=== PATIENT | female | born 1990 | race Caucasian/White ===

== ENCOUNTER 2017-05-30 15:23 | Outpatient (CLI) | payer OTHER ==
[~2017-05-30] VITALS: Ht 154.9 cm; Wt 67.1 kg
[~2017-05-30 15:23] MED LIST: PREN-39 PO
[2017-05-30 15:36] VITALS: BP 110/69; PULSE 109
[2017-05-30 15:37] VITALS: Ht 154.9 cm; Wt 67.1 kg
[2017-05-30] MEDS ORDERED: LACTATED RINGER'S 1,000 ML IV SCH (17:30)
[2017-05-30] MEDS ORDERED: TERBUTALINE 1 MG/ML INJ SC ONE (18:00)
--- NOTE | 2017-05-30 20:07 | PN ---
Triage Information Date/Time May 30, 2017 Reason for visit: Uterine contractions Weeks of Gestation 36 weeks 6 days /Para 6 para 3 Diabetes: none Hypertention: none Additional information Complaining of onset of uterine contractions on day of admission denies rupture of membrane or vaginal bleed Objective Vital Signs Date Time Temp Pulse Resp B/P Pulse Ox O2 Delivery O2 Flow Rate FiO2 05/30/17 15:36 98.1 109 110/69 Heart Rate: 140's Heart Rate Comments Reactive Contractions: 6-10 Minutes Apart Exam 50% on 1 cm present with vertex at -3 station Results/Medications Medications Current Medications Lactated Ringer's (Lr) 1,000 ml @ 125 mls/hr Q8H IV Last administered on 05/30t 17:14; Admin Dose 125 MLS/HR; Start 05/30/17 at 17:30 Disposition: Discharge Assessment/Plan 36 weeks and 6 days gestation Liver contractions Patient responded moderately well to subcutaneous terbutaline We will deliver patient after 37 weeks ANNETTE HENDRIX MD May 30, 2017 20:06
--- NOTE | 2017-05-30 22:03 | TRIAGE ---
OB Triage Datetime Report Generated by CPN: 05/30/2017 22:03 Datetime: 05/30/2017 20:23 Vaginal Exam Dilatation (cms): 2.0 Exam By: A KINGSTON RN Vaginal Bleeding: None Cervix, Consistency: Firm Cervix, Position: Posterior Presentation 'A': Cephalic Datetime: 05/30/2017 20:10 Labor Evaluation Frequency: 1-6 Monitor Mode: External Duration (sec)2399: 30-120 Quality: Mild Pattern: Normal: <= 5 Contractions in 10 Minutes Resting Tone [place]: Relaxed Heart Rate FHR Baseline Rate: 135 Monitor Mode: External US FHR Baseline Changes: No Baseline Change Variability: Moderate 6-25 bpm Accelerations: 15X15 Decelerations: None Category: Category I Datetime: 05/30/2017 19:24 Assessment Type: Triage Maternal Assessment Level of Consciousness: Fully Conscious DTR's/Clonus: DTRs 2+; No Clonus Headache: Denies Blurred Vision: No Respiratory Effort: Unlabored; Regular Rhythm; Equal Expansion Breath Sounds, Left: Clear and Equal Breath Sounds, Right: Clear and Equal Nausea/Vomiting: Denies RUQ Epigastric Pain: Denies Lower Extremities Edema: None Degree: None Upper Extremities Edema: None Degree: None Facial Edema: None Fall Risk Assessment History of Falling: (0) No Secondary Diagnosis: (0) No Ambulatory Aid: (0) Bedrest/Nurse Assist IV Therapy: (0) No Gait: (0) Normal/Bedrest/Immobile Mental Status: (0) Oriented to Own Ability Fall Score: 0 Fall Risk Score Definition: No Risk: No action required Pain Assessment Pain Scale: 0 Pain Presence: None/Denies Datetime: 05/30/2017 18:57 Stage of : OB Triage Datetime: 05/30/2017 18:51 Labor Evaluation Frequency: 0 Monitor Mode: External Resting Tone [place]: Relaxed Heart Rate FHR Baseline Rate: 135 Monitor Mode: External US Variability: Moderate 6-25 bpm Accelerations: 10X10 Decelerations: None Category: Category I Pain Assessment Pain Scale: 0 Pain Presence: None/Denies Pain Type: N/A Pain Goal: 3 Pain Relief Measures: Comfort Measures Datetime: 05/30/2017 17:40 Labor Evaluation Frequency: 6-7 Monitor Mode: External Duration (sec)2399: 50-70 Resting Tone [place]: Relaxed Heart Rate FHR Baseline Rate: 135 Monitor Mode: External US Variability: Moderate 6-25 bpm Accelerations: 10X10 Decelerations: None Category: Category I Pain Assessment Pain Scale: 0 Pain Presence: None/Denies Pain Type: N/A Pain Goal: 3 Pain Relief Measures: Comfort Measures Datetime: 05/30/2017 16:59 Stage of : OB Triage Datetime: 05/30/2017 16:44 Labor Evaluation Frequency: 6-7 Monitor Mode: External Duration (sec)2399: 50-60 Pattern: Normal: <= 5 Contractions in 10 Minutes Resting Tone [place]: Relaxed Heart Rate FHR Baseline Rate: 135 Monitor Mode: External US Variability: Moderate 6-25 bpm Accelerations: 10X10 Decelerations: None Category: Category I Pain Assessment Pain Scale: 7 Pain Presence: Intermittent Pain Type: Cramping Pain Location: Abdomen Pain Goal: 3 Pain Relief Measures: Comfort Measures Datetime: 05/30/2017 15:43 Stage of : OB Triage Assessment Type: Triage Maternal Assessment Level of Consciousness: Fully Conscious DTR's/Clonus: DTRs 2+; No Clonus Headache: Denies Blurred Vision: No Respiratory Effort: Unlabored; Regular Rhythm; Equal Expansion Breath Sounds, Left: Clear and Equal Breath Sounds, Right: Clear and Equal Nausea/Vomiting: Denies RUQ Epigastric Pain: Denies Facial Edema: None Temperature Route: Axillary Fall Risk Assessment History of Falling: (0) No Secondary Diagnosis: (0) No Ambulatory Aid: (0) Bedrest/Nurse Assist IV Therapy: (0) No Gait: (0) Normal/Bedrest/Immobile Mental Status: (0) Oriented to Own Ability Fall Score: 0 Fall Risk Score Definition: No Risk: No action required Labor Evaluation Frequency: 5-10 Monitor Mode: External Duration (sec)2399: 50-60 Quality: Mild Pattern: Normal: <= 5 Contractions in 10 Minutes Resting Tone [place]: Relaxed Heart Rate FHR Baseline Rate: 135 Monitor Mode: External US Variability: Moderate 6-25 bpm Accelerations: 10X10 Decelerations: None Category: Category I Pain Assessment Pain Scale: 7 Pain Presence: Intermittent Pain Type: Cramping; Contraction Pain Location: Abdomen Pain Goal: 3 Pain Relief Measures: Comfort Measures Vaginal Exam Dilatation (cms): 1.5 Effacement (%): 60 Station: -3 Exam By: S DEN Membrane Status: Intact Datetime: 05/30/2017 15:32 Assessment Type: Triage Maternal Assessment Level of Consciousness: Fully Conscious DTR's/Clonus: DTRs 2+; No Clonus Headache: Denies Blurred Vision: No Respiratory Effort: Unlabored; Regular Rhythm; Equal Expansion Breath Sounds, Left: Clear and Equal Breath Sounds, Right: Clear and Equal Nausea/Vomiting: Denies RUQ Epigastric Pain: Denies Facial Edema: None Fall Risk Assessment History of Falling: (0) No Secondary Diagnosis: (0) No Ambulatory Aid: (0) Bedrest/Nurse Assist IV Therapy: (0) No Gait: (0) Normal/Bedrest/Immobile Mental Status: (0) Oriented to Own Ability Fall Score: 0 Fall Risk Score Definition: No Risk: No action required Datetime: 05/30/2017 15:29 Time of Arrival: 05/30/2017 15:29 EGA: 36.6 Arrived By: Ambulatory Arrived From: Home Chief Complaint: pain across upper abdomen with contractions for 2-3 weeks, also has epigastric p ain after eating and when going to bed. has not tried antiacids Movement: Present Contractions: Regular Contractions: q 25 min Rupture of Membranes: Denies Vaginal Bleeding: None Vaginal Discharge: Present Recent Sexual Intercouse: Yes Abdominal Trauma: Not Applicable Patient Complaints: Contractions; Other Time Provider Notified: 05/30/2017 16:59 Provider Notified: DHARMESH Initial Plan: MONITOR, IV HYDRATION, TERB
== END 2017-05-30 20:19 | disposition home or self-care (01) ==
LOC: OBT 15:23 → L-D 15:26 → OBT 20:19
PROVIDERS: ATTEND Obstetrics & Gynecology
DX: O62.9 Abnormality of forces of labor, unspecified (principal); Z3A.36 36 weeks gestation of pregnancy
CPT/HCPCS: 96360; 96361; 96372; J3105; J7120; Z7500; G0463

== ENCOUNTER 2017-06-20 18:00 | Inpatient (IN) | END 2017-06-23 12:35 | disposition home or self-care (01) | DRG 775 ==

== ENCOUNTER 2018-12-28 17:54 | Emergency (ER) | payer OTHER ==
[~2018-12-28] VITALS: Ht 152.4 cm; Wt 67.0 kg
[~2018-12-28 17:54] MED LIST changes: +IBUP-1542 PO
[2018-12-28 18:02] VITALS: Ht 152.4 cm; Wt 67.0 kg
[2018-12-28] MEDS ORDERED: IBUPROFEN 800 MG TAB PO ONE (18:30)
[2018-12-28] MEDS ORDERED: MECLIZINE 12.5 MG TAB PO ONE (18:30)
[2018-12-28] MEDS ORDERED: IBUP-1542 PO (19:16)
[2018-12-28] MEDS ORDERED: MECL12.574 PO (19:16)
--- NOTE | 2018-12-28 19:19 | ERD ---
ER Documentation Chief Complaint Chief Complaint headache; abdominal pain ; diarrhea x 3 days; fever; dizziness HPI Patient is a 28-year-old female with no medical problems who presents with headache and abdominal pain. She has had 3 days of the symptoms. She has diarrhea. She was sent by the [facility] for evaluation. She reported fever today but did not take her temperature. She took Tylenol. She has no nausea or vomiting. She does feel dizzy. Upon review of old medical record the patient has multiple visits to the ER for various complaints. ROS All systems reviewed and are negative except as per history of present illness. Medications Home Meds Active Scripts Ibuprofen* (Motrin*) 600 Mg Tab, 600 MG PO Q6H PRN for PAIN AND OR ELEVATED TEMP, #30 TAB Prov:YECENIA REA MD 12/28/18 Meclizine Hcl* (Antivert*) 12.5 Mg Tab, 25 MG PO Q6H PRN for DIZZINESS, #20 TAB Prov:YECENIA REA MD 12/28/18 Ibuprofen* (Ibuprofen*) 600 Mg Tablet, 600 MG PO Q6H PRN for PAIN, #60 TAB 0 Refills Prov:ANNETTE HENDRIX MD 06/22/17 Reported Medications Vits W-Ca,Fe,Fa(<1MG) ( Vitamins) 1 Tab Tablet, 1 TAB PO DAILY 05/25/14 Allergies Allergies: Coded Allergies: No Known Drug Allergies (Verified Allergy, Unknown, 05/30/17) PMhx/Soc Medical and Surgical Hx: pt denies Medical Hx, pt denies Surgical Hx Hx Alcohol Use: No Hx Substance Use: No Hx Tobacco Use: No Smoking Status: Never smoker FmHx Family History: diabetes Physical Exam Vitals Vital Signs Date Temp Pulse Resp B/P (MAP) Pulse Ox O2 O2 Flow FiO2 Time Delivery Rate 12/28/18 97.3 89 20 116/71 99 18:02 (86) Physical Exam Const: No acute distress Head: Atraumatic Eyes: Normal Conjunctiva ENT: Normal External Ears, Nose and Mouth. Neck: Full range of motion. No meningismus. Resp: Clear to auscultation bilaterally Cardio: Regular rate and rhythm, no murmurs Abd: Soft, non tender, non distended. Normal bowel sounds Skin: No petechiae or rashes Back: No midline or flank tenderness Ext: No cyanosis, or edema Neur: Awake and alert Psych: Normal Mood and Affect Results 24 hrs Laboratory Tests Test 12/28/18 18:41 12/28/18 18:44 POC Beta HCG, Qualitative NEGATIVE Bedside Urine pH (LAB) 5.5 Bedside Urine Protein (LAB) Negative Bedside Urine Glucose (UA) Negative Bedside Urine Ketones (LAB) Negative Bedside Urine Blood Trace-lysed Bedside Urine Nitrite (LAB) Negative Bedside Urine Leukocyte Esterase (L Trace Current Medications Medications Dose Sig/Pauline Start Time Status Last (Trade) Ordered Route PRN Stop Time Admin Dose Reason Admin Ibuprofen 800 mg ONCE ONCE 12/28/18 DC 12/28/18 (Motrin) PO 18:30 18:31 12/28/18 18:31 Meclizine 25 mg ONCE ONCE 12/28/18 DC 12/28/18 HCl PO 18:30 18:31 (Antivert) 12/28/18 18:31 Procedures/MDM Patient is a 28-year-old female with no medical problems who presents with abdominal pain and headache and dizziness. She was found to have normal exam and normal vital signs. She is well-appearing otherwise. Abdominal exam is benign. I doubt appendicitis, pancreatitis, cholecystitis, or bowel obstruction. Urine dip is negative for infection. test is negative I doubt presence or ectopic . The patient will be discharged with prescription for meclizine and ibuprofen. She can follow-up with her primary doctor within 1 to 2 days. She can return for any worsening symptoms. Departure Diagnosis: Primary Impression: Dizziness Additional Impression: Abdominal pain Abdominal location: unspecified location Qualified Codes: R10.9 - Unspecified abdominal pain Condition: Fair Patient Instructions: Abdominal Pain, Dizziness, Unk Cause Referrals: IGNACIO VERAS MD (PCP) Additional Instructions: Llame al doctor MAANA y ever terri MEME PARA DENTRO DE 1-2 CHENEY.Dgale a la secretaria que nosotros le instruimos hacer esta meme.Avise o llame si [place]ston condicin se empeora antes de la meme. Regresa aqui si peor o no mejor. YECENIA REA MD Dec 28, 2018 19:19
[2018-12-28 19:24] VITALS: BP 120/65; PULSE 88; RESP 20
== END 2018-12-28 19:25 | disposition home or self-care (01) ==
LOC: FTE 17:54
DX: R42 Dizziness and giddiness (principal); R10.9 Unspecified abdominal pain
CPT/HCPCS: 81003; 81025; Z7502; Z7610; 99282